=== PATIENT | female | born 1985 | race Caucasian/White ===

== ENCOUNTER 2019-04-04 10:02 | Inpatient (IN) | payer OTHER ==
[2019-04-04 11:01] LABS: APPEARANCE,URINE SLIGHTLY-CLOUDY; BILIRUBIN,URINE NEGATIVE (NEGATIVE); COLOR,URINE YELLOW; GLUCOSE, URINE NEGATIVE (NEGATIVE); KETONES,URINE NEGATIVE (NEGATIVE); LEUKOCYTE ESTERASE,URINE TRACE (NEGATIVE); NITRITE,URINE NEGATIVE (NEGATIVE); PROTEIN,URINE 30 mg/dL (NEGATIVE); UROBILINOGEN,URINE NEGATIVE mg/dL (<2.0)
[2019-04-04] MEDS: RINGERS SOLUTION,LACTATED 1,000 ML IV PRN ×3 (11:12→21:39)
[2019-04-04] MEDS ORDERED: PENICILLIN G-K 5 MILLION UNIT VIAL ONE ×3 (11:21→21:31)
[2019-04-04 11:27] LABS: URINE AMPHETAMINES SCREEN NEGATIVE; URINE BARBITURATES SCREEN NEGATIVE; URINE BENZODIAZEPINES SCREEN NEGATIVE; URINE COCAINE SCREEN NEGATIVE; URINE MARIJUANA (THC) SCREEN NEGATIVE; URINE METHADONE SCREEN NEGATIVE; URINE PHENCYCLIDINE SCREEN NEGATIVE
[2019-04-04 11:44] LABS: ABSOLUTE EOSINOPHILS # (AUTO) 0.1 10^3/uL (0.0-0.6); ABSOLUTE LYMPHOCYTES (AUTO) 1.9 10^3/uL (0.5-4.7); ABSOLUTE MONOCYTES (AUTO) 0.7 10^3/uL (0.1-1.4); ABSOLUTE NEUT (AUTO) 7.7 10^3/uL (1.7-8.2); BASOPHILS % (AUTO) 0.2 % (0-2); EOSINOPHILS % (AUTO) 1.3 % (0-6); HEMATOCRIT 35.4 % (36.0-47.0); HEMOGLOBIN 12.2 g/dL (12.0-15.5); LYMPHOCYTES % (AUTO) 18.3 % (13-45); MEAN CORPUSCULAR HEMOGLOBIN 29.5 pg (27.0-33.4); MEAN CORPUSCULAR HGB CONC 34.5 g/dL (32.0-36.0); MEAN CORPUSCULAR VOLUME 86 fl (80-97); MONOCYTES % (AUTO) 6.3 % (3-13); PLATELET COUNT 196 10^3/uL (150-450); RED BLOOD COUNT 4.12 10^6/uL (3.72-5.28); RED CELL DISTRIBUTION WIDTH 14.1 % (11.5-14.0); SEGMENTED NEUTROPHILS % (AUTO) 73.9 % (42-78); TOTAL CELLS COUNTED % (AUTO) 100 %; WHITE BLOOD COUNT 10.4 10^3/uL (4.0-10.5)
--- NOTE | 2019-04-04 12:17 | Admission Physical ---
Datetime Report Generated by CPN: 04/04/2019 12:17 CURRENT ADMISSION Hx Assessment: The History has been Reviewed and is Current Chief Complaint: Suspected Ruptured Membranes Indication for Induction: PROM Indication for Induction- Other: ruptured 24 hours Admit Impression : Term, Intrauterine ; No Active Labor; Ruptured Membranes Admit Plan: Admit to Unit; Initiate Labor Induction Protocol ALLERGIES Medication Allergies: No Medication Allergies: No Known Allergies (04/04/2019) Latex: No Latex Allergies Food Allergies: None Environmental Allergies: None OBSTETRICAL HISTORY EDC: 04/21/2019 00:00 : 2 Para: 1 Term: 1 : 0 SAB: 0 IAB: 0 Ectopic: 0 Livin Cesareans: 0 VBACs: 0 Multiple Births: 0 Gestational Diabetes: No Rh Sensitization: No Incompetent Cervix: No MATEUS: No Infertility: No ART Treatment: No Uterine Anomaly: No IUGR: No Hx Previous C/S: No Macrosomia: No Hx Loss/Stillborn: No PIH: No Hx : No Placenta Previa/Abruption: No Depression/PP Depression: No PTL/PROM: No Post Hemorrhage: No Current Procedures: Ultrasound; NST Obstetrical History Comments: G1 - at 40.0 weeks (2008) G2 - current SEE RECORDS Alcohol: No Marijuana : No Cocaine: No Other Illicit Drugs: No Cigarettes: Never Smoker. [id number] MEDICAL HISTORY Diabetes: No Blood Transfusion: No Pulmonary Disease (Asthma, TB): No Breast Disease: No Hypertension: No Nurses' Aide Surgery: No Heart Disease: No Hosp/Surgery: No Autoimmune Disorder: No Anesthetic Complications: No Kidney Disease: No Abnormal Pap Smear: Yes Neuro/Epilepsy: No Psychiatric Disorders: No Other Medical Diseases: No Hepatitis/Liver Disease: No Significant Family History: No Varicosities/Phlebitis: No Trauma/Violence : No Thyroid Dysfunction: No Medical History Comments: Abnormal pap with LEEP INFECTIOUS HISTORY Gonorrhea: No Genital Herpes: Yes Chlamydia: No Tuberculosis: No Syphilis: No Hepatitis: No HIV/AIDS Exposure: No Rash or Viral Illness: No HPV: Yes Infectious History Comments: Valtrex, HPV with LEEP PHYSICAL EXAM General: Normal HEENT: Normal Neurologic: Normal Thyroid: Normal Heart: Normal Lungs: Normal Breast: Deferred Back: Normal Abdomen: Normal Genitourinary Exam: Normal Extremities: Normal DTRs: Normal Pelvic Type: Adequate Physical Exam Comments: pelvis proven 8-3 Hx HSV 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 Calvillo notified PLANS FOR LABOR AND DELIVERY Labor and Delivery: None Pain Management: Epidural Feeding Preference: Breast Benefit of Breast Feed Discussed: Yes Circumcision: N/A INFORMED CONSENT Assignment: Valentin Calvillo MD Signature: with User ID: [email or web address] : with User ID: [email or web address]
[2019-04-04] MEDS ORDERED: OXYTOCIN 10 UNIT/ML VIAL ONE (13:44)
[2019-04-04] MEDS ORDERED: LIDOCAINE 1% INJ-PF (10 MG/ML) 30 ML SDV ONE (13:44)
[2019-04-04] MEDS ORDERED: MISOPROSTOL 0.2 MG TABLET ONE (13:44)
[2019-04-04] MEDS ORDERED: OXYTOCIN/NORMAL SALINE 20 UNIT/1,000 ML RTUINJ ONE (13:45)
[2019-04-04] MEDS ORDERED: OXYTOCIN/NORMAL SALINE 20 UNIT/1,000 ML RTUINJ IV PRN (14:06)
[2019-04-04] MEDS ORDERED: RINGERS SOLUTION,LACTATED 300 ML IV ONE (14:06)
[2019-04-04] MEDS ORDERED: PENICILLIN G POTASSIUM 5,000,000 UNIT in DEXTROSE 5%-WATER 100 ML IV ONE (14:08)
[2019-04-04] MEDS: PENICILLIN G POTASSIUM 2,500,000 UNIT in DEXTROSE 5%-WATER 50 ML IV SCH ×2 (17:12→21:39)
[2019-04-05] MEDS ORDERED: BUPIVACAINE HCL 0.25 % INJ/PF (2.5 MG/1 ML) 30 ML VIAL ONE (01:28)
[2019-04-05] MEDS ORDERED: FENTANYL/BUPIVACAINE/NS/PF 300 MCG/150 ML RTUINJ EPI ONE (01:28)
[2019-04-05] MEDS ORDERED: EPHEDRINE SULFATE INJ 50 MG/1 ML AMPULE ONE (01:28)
[2019-04-05] MEDS ORDERED: PENICILLIN G-K 5 MILLION UNIT VIAL ONE (02:30)
[2019-04-05] MEDS: PENICILLIN G POTASSIUM 2,500,000 UNIT in DEXTROSE 5%-WATER 50 ML IV SCH (02:39)
[2019-04-05] MEDS: RINGERS SOLUTION,LACTATED 1,000 ML IV PRN (02:40)
[2019-04-05] MEDS ORDERED: OXYTOCIN/NORMAL SALINE 20 UNIT/1,000 ML RTUINJ ONE (03:49)
[2019-04-05] MEDS ORDERED: DIPHENHYDRAMINE HCL 25 MG CAPSULE PO PRN (04:18)
[2019-04-05] MEDS ORDERED: MEASLES,MUMPS&RUBELLA VACC/PF 0.5 ML VIAL SUBCUT PRN (04:18)
[2019-04-05] MEDS ORDERED: ACETAMINOPHEN WITH CODEINE #3 TABLET PO PRN ×2 (04:18)
[2019-04-05] MEDS ORDERED: GLYCERIN/WITCH HAZEL LEAF 1 EACH MED..WIPE TP PRN (04:18)
[2019-04-05] MEDS ORDERED: PSEUDOEPHEDRINE HCL 30 MG TABLET PO PRN (04:18)
[2019-04-05] MEDS ORDERED: DIBUCAINE 1% OINTMENT 56 GM TP PRN (04:18)
[2019-04-05] MEDS ORDERED: DIPH/PERTUSS(ACELL)/TETANUS VAC/PF 0.5 ML SYR (>=10YO) IM PRN (04:18)
[2019-04-05] MEDS ORDERED: BENZOCAINE/MENTHOL AEROSOL SPRAY 56 ML TOP PRN (04:18)
[2019-04-05] MEDS ORDERED: MAGNESIUM HYDROXIDE SUSP 30 ML UDCUP PO PRN (04:18)
[2019-04-05] MEDS ORDERED: PROMETHAZINE HCL 25 MG SUPP.RECT PR PRN (04:18)
[2019-04-05] MEDS ORDERED: PROMETHAZINE HCL 25 MG TABLET PO PRN (04:18)
[2019-04-05] MEDS ORDERED: NA PHOS,M-B/NA PHOS,DI-BA (ADULT) 133 ML ENEMA PR PRN (04:18)
[2019-04-05] MEDS ORDERED: ZOLPIDEM TARTRATE 5 MG TABLET PO PRN (04:18)
[2019-04-05] MEDS ORDERED: ACETAMINOPHEN 650 MG SUPP.RECT PR PRN (04:18)
[2019-04-05] MEDS ORDERED: OXYTOCIN/NORMAL SALINE 20 UNIT/1,000 ML RTUINJ IV PRN (04:18)
[2019-04-05] MEDS ORDERED: PROMETHAZINE HCL INJ 25 MG/1 ML VIAL IV PRN (04:18)
--- NOTE | 2019-04-05 05:37 | Warning Signs in Babies ---
VOD Warning Signs Datetime Report Generated by [facility]: 04/05/2019 05:37 VOD#608 -Warning Signs in Babies: Viewed with Parent(s)/Family (04/05/2019 05:30:Ezequiel Levine RN)
[2019-04-05] MEDS ORDERED: IBUPROFEN 800 MG TABLET ONE (05:44)
[2019-04-05] MEDS: IBUPROFEN 800 MG TABLET PO SCH ×3 (05:48→22:40)
--- NOTE | 2019-04-05 06:01 | Delivery Summary ---
Del Sum A-C Datetime Report Generated by CPN: 04/05/2019 06:00 DELIVERY PERSONNEL DELIVERY PERSONNEL: [id number] Delivery Doctor:: Valentin Calvillo MD Labor and Delivery Nurse:: Ezequiel Levine [id number] software engineer Nurse:: Araseli Chan RN Radial Drill Operator/RADIO REPORTER: Glendy Brodie, LABEL FUSER TENDER MATERNAL INFORMATION Delivery Anesthesia: Epidural Medications After Delivery: Pitocin Drip 20 Units/1000ml NSS Meds After Delivery Comment: Pitocin 20 units in 1000 mL NS Delivery QBL: 50 Maternal Complications: Premature Rupture of Membranes; Other Complication Details: Prolonged rupture of membranes LABOR SUMMARY EDC: 04/21/2019 00:00 No. Babies in Womb: 1 Attempted: No Labor Anesthesia: Epidural LABOR INFORMATION Reason for Induction: Not Applicable Onset of Labor: 04/05/2019 03:30 Complete Dilatation: 04/05/2019 03:57 Oxytocin: Augmentation Group B Beta Strep: Positive Antibiotics # of Doses: 4 Antibiotics Time of Last Dose: 0239 Name of Antibiotic Given: PCN Steroids Given: None Reason Steroids Not Administered: Not Applicable MEMBRANES Membranes Rupture Method: Spontaneous Rupture of Membranes: 04/03/2019 16:00 Length of Rupture (hr): 36.12 Amniotic Fluid Color: Clear Amniotic Fluid Amount: Small Amniotic Fluid Odor: Normal STAGES OF LABOR Stage 1 hr: 0 Stage 1 min: 27 Stage 2 hr: 0 Stage 2 min: 10 Stage 3 hr: 0 Stage 3 min: 3 Total Time in Labor hr: 0 Total Time in Labor min: 40 VAGINAL DELIVERY Episiotomy: None Laceration #1: None Laceration Extension #1: N/A Sponge Count Correct: Yes Sharps Count Correct: Yes CSECTION DELIVERY Primary Indication: N/A Secondary Indication: N/A CSection Incidence: N/A Labor: N/A Elective: N/A CSection Incision: N/A BABY A INFORMATION Infant Delivery Date/Time: 04/05/2019 04:07 Method of Delivery: Vaginal Born in Route : No : N/A Forceps: N/A Vacuum Extraction: N/A Shoulder Dystocia : No PRESENTATION/POSITION BABY A Presentation: Cephalic Cephalic Presentation: Vertex Vertex Position: Right Occipital Anterior Breech Presentation: N/A PLACENTA INFORMATION BABY A Placenta Delivery Time : 04/05/2019 04:10 Placenta Method of Delivery: Spontaneous Placenta Status: Delivered SCORES BABY A Heart Rate 1 min: >100 bpm Resp Effort 1 min: Good Cry Reflex Irritability 1 min: Cough or Sneeze or Pulls Away Muscle Tone 1 min: Active Motion Color 1 min: Blue/Pale Resuscitation Effort 1 min: Tactile Stimulation SCORE 1 MIN: 8 Heart Rate 5 min: >100 bpm Resp Effort 5 min: Good Cry Reflex Irritability 5 min: Cough or Sneeze or Pulls Away Muscle Tone 5 min: Active Motion Color 5 min: Body [place], Extremities Blue SCORE 5 MIN: 9 INFORMATION BABY A Gestational Age at Delivery: 37.5 Gestational Status: Early Term- 37- 38.6 Weeks Outcome : Liveborn Condition : Stable Sex: Female IDENTIFICATION BABY A Infant Verification Date/Time: 04/05/2019 04:39 ID Band Number: [id number] Mother's Name Verified: Yes RN Verifying : Pablo Levine, RN Additional Verifying Personnel: Bernardo Atwood RN WEIGHT/LENGTH BABY A Birthweight (gm): 3291 Infant Weight (lb): 7 Weight (oz): 4 Length (in): 19.00 Infant Length (cm): 48.26 CORD INFORMATION BABY A No. Cord Vessels: 3 Nuchal Cord : N/A Cord Blood Taken: Yes-For Eval (Mom's Blood Type - or O+) Infant Suction: None ASSESSMENT BABY A Infant Complications: None Physical Findings at Delivery: Within Normal Limits Skin to Skin: Yes Skin to Skin Time (min): 60 Transferred To: Remains with Mother BABY B INFORMATION : N/A SIGNATURES Signature: with User ID: [email or web address]
[2019-04-05] MEDS: PRENATAL VITAMIN W DHA CAPSULE PO SCH ×2 (10:00→15:47)
[2019-04-05] MEDS: SENNOSIDES/DOCUSATE 8.6-50 MG 1 EACH TABLET PO SCH ×2 (10:00→15:47)
[2019-04-05] MEDS: FERROUS SULFATE 325 MG TABLET PO SCH ×3 (10:00→17:18)
[2019-04-05] MEDS: DOCUSATE SODIUM 100 MG CAPSULE PO SCH ×3 (10:00→17:18)
[2019-04-05] MEDS ORDERED: ACETAMINOPHEN 325 MG TABLET PO PRN (13:10)
[2019-04-05] MEDS: FAMOTIDINE 20 MG TABLET PO SCH ×4 (15:47→22:40)
[2019-04-06] MEDS: IBUPROFEN 800 MG TABLET PO SCH ×3 (06:37→21:29)
[2019-04-06 07:31] LABS: HEMATOCRIT 33.4 % (36.0-47.0); HEMOGLOBIN 11.2 g/dL (12.0-15.5); MEAN CORPUSCULAR HEMOGLOBIN 29.1 pg (27.0-33.4); MEAN CORPUSCULAR HGB CONC 33.6 g/dL (32.0-36.0); MEAN CORPUSCULAR VOLUME 86 fl (80-97); PLATELET COUNT 180 10^3/uL (150-450); RED BLOOD COUNT 3.87 10^6/uL (3.72-5.28); RED CELL DISTRIBUTION WIDTH 14.3 % (11.5-14.0); WHITE BLOOD COUNT 9.7 10^3/uL (4.0-10.5)
[2019-04-06] MEDS: PRENATAL VITAMIN W DHA CAPSULE PO SCH (10:04)
[2019-04-06] MEDS: SENNOSIDES/DOCUSATE 8.6-50 MG 1 EACH TABLET PO SCH (10:04)
[2019-04-06] MEDS: FAMOTIDINE 20 MG TABLET PO SCH ×2 (10:05→21:29)
[2019-04-06] MEDS: FERROUS SULFATE 325 MG TABLET PO SCH ×2 (10:05→17:40)
[2019-04-06] MEDS: DOCUSATE SODIUM 100 MG CAPSULE PO SCH ×2 (10:05→17:40)
--- NOTE | 2019-04-06 11:24 | PDOC PROGRESS REPORT ---
Subjective-OB Progress Note for:: 04/06/19 Subjective: Pt doing well, no concerns. She reports light bleeding, reg diet and voiding without difficulty. Physical Exam (OB) Vital Signs: Temp Pulse Resp BP Pulse Ox 98.2 F 66 16 106/55 L 98 04/06/19 08:12 04/06/19 08:12 04/06/19 08:12 04/06/19 08:12 04/06/19 08:12 Intake & Output 04/05/19 04/06/19 04/07/19 06:59 06:59 05:59 Intake Total 1904 Balance 1904 Weight 75 kg - PIH/Pre-Eclampsia Clonus: Negative Headache: Absent Epigastric Pain: No Visual Changes: No - Lochia Lochia Amount: Scant < 10 ml Lochia Color: Rubra/Red - Abdomen Description: Soft Hernia Present: No Fundal Description: Firm, Midline Fundal Height: u/u - u/2 Objective-Diagnostic Laboratory: 04/06/19 06:41 04/06/19 06:41 WBC 9.7 RBC 3.87 Hgb 11.2 L Hct 33.4 L MCV 86 MCH 29.1 MCHC 33.6 RDW 14.3 H Plt Count 180 Assessment and Plan(PN) - Assessment and Plan (1) Vaginal delivery Is this a current diagnosis for this admission?: Yes - Time Spent with Patient Time with patient: Less than 15 minutes Medications reviewed and adjusted accordingly: Yes - Disposition Anticipated Discharge: Home Within: within 24 hours
[2019-04-07] MEDS: IBUPROFEN 800 MG TABLET PO SCH (05:01)
[2019-04-07 08:09] VITALS: BP 121/63
--- NOTE | 2019-04-07 10:05 | PDOC DISCHARGE SUMMARY ---
Impression - Admit/DC Date/PCP Admission Date/Primary Care Provider: 04/05/19 04:38 SAADIA HERBERT MD Discharge Date: 04/07/19 - Discharge Diagnosis (1) Vaginal delivery Is this a current diagnosis for this admission?: Yes - Additional Information Resuscitation Status: Full Code Discharge Diet: Regular Discharge Activity: Balance Activity w/Rest, Pelvic Rest Referrals: SAADIA HERBERT MD [Primary Care Provider] - Prescriptions: Ibuprofen [Motrin 800 mg Tablet] 800 mg PO Q8HP PRN #60 tablet PRN Reason: Home Medications: 95/Iron Fum/Folic/Dha [ + Dha Combo Pack] 1 each PO DAILY 04/04/19 Valacyclovir HCl [Valtrex 500 mg Tablet] 500 mg PO DAILY 04/04/19 Ibuprofen [Motrin 800 mg Tablet] 800 mg PO Q8HP PRN #60 tablet 04/07/19 Results Laboratory Results: WBC 9.7 10^3/uL (4.0-10.5) 04/06/19 06:41 RBC 3.87 10^6/uL (3.72-5.28) 04/06/19 06:41 Hgb 11.2 g/dL (12.0-15.5) L 04/06/19 06:41 Hct 33.4 % (36.0-47.0) L 04/06/19 06:41 MCV 86 fl (80-97) 04/06/19 06:41 MCH 29.1 pg (27.0-33.4) 04/06/19 06:41 MCHC 33.6 g/dL (32.0-36.0) 04/06/19 06:41 RDW 14.3 % (11.5-14.0) H 04/06/19 06:41 Plt Count 180 10^3/uL (150-450) 04/06/19 06:41 Lymph % (Auto) 18.3 % (13-45) 04/04/19 11:24 [place] % (Auto) 6.3 % (3-13) 04/04/19 11:24 Eos % (Auto) 1.3 % (0-6) 04/04/19 11:24 Baso % (Auto) 0.2 % (0-2) 04/04/19 11:24 Absolute Neuts (auto) 7.7 10^3/uL (1.7-8.2) 04/04/19 11:24 Absolute Lymphs (auto) 1.9 10^3/uL (0.5-4.7) 04/04/19 11:24 Absolute Monos (auto) 0.7 10^3/uL (0.1-1.4) 04/04/19 11:24 Absolute Eos (auto) 0.1 10^3/uL (0.0-0.6) 04/04/19 11:24 Absolute Basos (auto) 0.0 10^3/uL (0.0-0.2) 04/04/19 11:24 Seg Neutrophils % 73.9 % (42-78) 04/04/19 11:24 Urine Color YELLOW 04/04/19 10:18 Urine Appearance SLIGHTLY-CLOUDY 04/04/19 10:18 Urine pH 8.0 (5.0-9.0) 04/04/19 10:18 Ur Specific [place] 1.020 04/04/19 10:18 Urine Protein 30 mg/dL (NEGATIVE) H 04/04/19 10:18 Urine Glucose (UA) NEGATIVE mg/dL (NEGATIVE) 04/04/19 10:18 Urine Ketones NEGATIVE mg/dL (NEGATIVE) 04/04/19 10:18 Urine Blood NEGATIVE (NEGATIVE) 04/04/19 10:18 Urine Nitrite NEGATIVE (NEGATIVE) 04/04/19 10:18 Urine Bilirubin NEGATIVE (NEGATIVE) 04/04/19 10:18 Urine Urobilinogen NEGATIVE mg/dL (<2.0) 04/04/19 10:18 Ur Leukocyte Esterase TRACE (NEGATIVE) H 04/04/19 10:18 Urine Ascorbic Acid NEGATIVE (NEGATIVE) 04/04/19 10:18 Membranes Rupture POSITIVE (NEGATIVE) H 04/04/19 10:18 Urine Opiates Screen NEGATIVE 04/04/19 10:18 Urine Methadone Screen NEGATIVE 04/04/19 10:18 Ur Barbiturates Screen NEGATIVE 04/04/19 10:18 Ur Phencyclidine Scrn NEGATIVE 04/04/19 10:18 Ur Amphetamines Screen NEGATIVE 04/04/19 10:18 U Benzodiazepines Scrn NEGATIVE 04/04/19 10:18 Urine Cocaine Screen NEGATIVE 04/04/19 10:18 U Marijuana (THC) Screen NEGATIVE 04/04/19 10:18 RPR NONREACTIVE (NONREACTIVE) 04/04/19 11:24 Blood Type O POSITIVE 04/04/19 11:24 Antibody Screen NEGATIVE 04/04/19 11:24
[2019-04-07] MEDS: FERROUS SULFATE 325 MG TABLET PO SCH (10:34)
[2019-04-07] MEDS: PRENATAL VITAMIN W DHA CAPSULE PO SCH (10:34)
[2019-04-07] MEDS: DOCUSATE SODIUM 100 MG CAPSULE PO SCH (10:34)
[2019-04-07] MEDS: SENNOSIDES/DOCUSATE 8.6-50 MG 1 EACH TABLET PO SCH (10:35)
[2019-04-07] MEDS: FAMOTIDINE 20 MG TABLET PO SCH (10:35)
== END 2019-04-07 12:48 | disposition home or self-care (01) | DRG 807 ==
LOC: LC 10:02 → LR 11:21 → UNDOADMIN 11:21 → UNDODISIN 11:59 → LR 21:28 → LC 04-05 04:37 → LR 04-05 04:38 → 2S 04-05 06:06
PROVIDERS: ADMIT Obstetrics & Gynecology Gynecology; ATTEND Obstetrics & Gynecology Gynecology
PROC: 10E0XZZ Delivery of Products of Conception, External Approach (ICD-10-PCS; principal; 2019-04-05)
DX: O98.32 Other infections with a predominantly sexual mode of transmission complicating childbirth (principal); Z37.0 Single live birth; A60.00 Herpesviral infection of urogenital system, unspecified; O99.824 Streptococcus B carrier state complicating childbirth; Z3A.37 37 weeks gestation of pregnancy
CPT/HCPCS: 36415; 80307; 81005; 84112; 85025; 85027; 86592; 86850; 86900; 86901; J2540; J2590; J3010; J3490